=== PATIENT | female | born 2000 | race Two or more races ===

== ENCOUNTER 2021-03-25 18:47 | Emergency (ER) | payer BC ==
[~2021-03-25] VITALS: Ht 167.6 cm; Wt 104.0 kg
[2021-03-25] MEDS ORDERED: LIDOCAINE HCL 1% 10 MG/ML 10ML VIAL IJ ONE (19:45)
[2021-03-25] MEDS ORDERED: LIDOCAINE HCL 1% 20ML VIAL (Pyxis) INJ INFIL ONE (19:45)
[2021-03-25 20:30] VITALS: BP 132/82
== END 2021-03-25 20:30 | disposition home or self-care (01) ==
LOC: ER 18:47
DX: S61.213A Laceration without foreign body of left middle finger without damage to nail, initial encounter (principal); W25.XXXA Contact with sharp glass, initial encounter; Y93.89 Activity, other specified; Y92.010 Kitchen of single-family (private) house as the place of occurrence of the external cause
CPT/HCPCS: 12001; 99282; J3490